=== PATIENT | male | born 1945 | race Caucasian/White ===

== ENCOUNTER 2016-04-26 08:57 | Day surgery (SDC) | payer MEDICARE, OTHER ==
[~2016-04-26 08:57] MED LIST: ALBUMIN HUMAN 250 ML IV PRN
[2016-04-26 09:36] LABS: HEMATOCRIT 34.1 % (37.9-51.0); HEMOGLOBIN 11.3 g/dL (13.5-17.0); HGB HCT DIFFERENCE -0.2; MEAN CORPUSCULAR HEMOGLOBIN 33.5 pg (27.0-33.4); MEAN CORPUSCULAR HGB CONC 33.2 g/dL (32.0-36.0); MEAN CORPUSCULAR VOLUME 101 fl (80-97); RED BLOOD COUNT 3.38 10^6/uL (4.35-5.55); RED CELL DISTRIBUTION WIDTH 14.7 % (11.5-14.0); WHITE BLOOD COUNT 3.6 10^3/uL (4.0-10.5)
[2016-04-26 09:41] LABS: PROTHROMBIN TIME 15.8 SEC (11.4-15.4)
[2016-04-26 09:42] LABS: PARTIAL THROMBOPLASTIN TIME 29.3 SEC (23.5-35.8)
[2016-04-26 09:47] LABS: BLOOD UREA NITROGEN 37 mg/dL (7-20); CREATININE RESULT 2.49 mg/dL (0.52-1.25)
[2016-04-26 12:37] VITALS: BP 119/71
[2016-04-26 12:54] LABS: FLUID APPEARANCE SLIGHTLY HAZY; FLUID TYPE PERITONEAL
[2016-04-26 12:55] LABS: FLUID RBC DILUENT USED NONE USED; FLUID RBC DILUTION FACTOR 1; FLUID RBC SIDE 1 78; FLUID RBC SIDE 2 76; TOTAL RBC SQUARES COUNTED FLD 225
== END 2016-04-26 12:55 | disposition home or self-care (01) ==
LOC: RAD 08:57
PROVIDERS: ATTEND Internal Medicine Gastroenterology
PROC: 0W9F3ZZ Drainage of Abdominal Wall, Percutaneous Approach (ICD-10-PCS; principal; 2016-04-26)
DX: R18.8 Other ascites (principal); K74.69 Other cirrhosis of liver; K83.8 Other specified diseases of biliary tract; R94.5 Abnormal results of liver function studies; I10 Essential (primary) hypertension; Z86.73 Personal history of transient ischemic attack (TIA), and cerebral infarction without residual deficits; Z79.899 Other long term (current) drug therapy; Z79.01 Long term (current) use of anticoagulants
CPT/HCPCS: 36415; 87205; 87070; 84520; 82565; 85027; 85610; 85730; 89050; 87075; 88162; 49083; P9047

== ENCOUNTER 2016-05-29 10:37 | Emergency (ER) | payer MEDICARE, OTHER ==
[2016-05-29] MEDS ORDERED: LIDOCAINE 1%/EPINEPHRINE INJ 20 ML VIAL INJ ONE (11:13)
[2016-05-29] MEDS ORDERED: DIPH/PERTUSS(ACELL)/TETANUS VAC/PF 0.5 ML SYR (>=10YO) IM ONE (11:13)
--- NOTE | 2016-05-29 15:34 | ER Document Report ---
ED Fall - General Chief Complaint: Fall Injury Stated Complaint: HEAD LACERATION Time seen by provider: 12:28 Mode of Arrival: Wheelchair Information source: Patient Notes: This is a 70-year-old man with a history of cirrhosis who is brought into the emergency room after a fall at home. The patient does smoke and usually sits out in his chair smoking and requires assistance with ambulation and transfers. The patient's fitted temporarily went in the house and the patient tried to get out of his chair and fell and hit his head. The was there almost instantaneously and denies any loss of consciousness. The patient complains of a head laceration, some left hand skin tears and some left chest wall pain. TRAVEL OUTSIDE OF THE [place] IN LAST 30 DAYS: No - HPI Occurred: Just prior to arrival Where: Home Context: Lost balance Associated symptoms: Dazed/confused. denies: Lost consciousness Location of injury/pain: Chest, Head, Upper extremity Quality of pain: Dull Severity: Mild Pain Level: 1 Prehospital interventions: No: C-collar, Backboard, HAILY, IV, IO, BVM, Mohinder airway, Nasal airway, Oral airway, Intubation, Needle decompression, Splints, Wound care, Analgesia, Cardiac medications, CPR, Defibrillation, Other - Related data Allergies/Adverse Reactions: No Known Allergies Allergy (Verified 04/26/16 09:35) Past Medical History - General Information source: Patient - Social History Smoking Status: Current Every Day Smoker Cigarette use (# per day): Yes - few cigarettes a day Chew tobacco use (# tins/day): No Frequency of alcohol use: None Drug Abuse: None Lives with: Family Family History: None Patient has suicidal ideation: No Patient has homicidal ideation: No - Past Medical History Cardiac Medical History: Reports: Hx Hypertension - 1995 Denies: Hx Coronary Artery Disease, Hx Heart Attack Pulmonary Medical History: Denies: Hx Asthma, Hx Bronchitis, Hx COPD, Hx Pneumonia Neurological Medical History: Reports: Hx Cerebrovascular Accident - 1994,1995. Denies: Hx Seizures Renal/ Medical History: Reports: Other Malignancy Medical History: Reports Other - Right renal insufficiency GI Medical History: Reports: Hx Cirrhosis Musculoskeltal Medical History: Reports Hx Arthritis - NECK, BACK, HANDS, KNEES Skin Medical History: Reports None Psychiatric Medical History: Reports: None Traumatic Medical History: Reports: None Infectious Medical History: Reports: None Surgical Hx: Other - Immunizations Hx Diphtheria, Pertussis, Tetanus Vaccination: No Review of Systems - Review of Systems Constitutional: denies: Chills, Fever EENT: No symptoms reported Cardiovascular: No symptoms reported Respiratory: No symptoms reported Gastrointestinal: No symptoms reported Genitourinary: No symptoms reported Male Genitourinary: No symptoms reported Musculoskeletal: See HPI Skin: See HPI Hematologic/Lymphatic: No symptoms reported Neurological/Psychological: See HPI Physical Exam - Vital signs Vitals: Temp Pulse Resp BP Pulse Ox 97.9 F 94 20 131/74 H 97 05/29/16 10:42 05/29/16 10:42 05/29/16 10:42 05/29/16 10:42 05/29/16 10:42 Notes: Physical exam: GENERAL: 70-year-old man, alert and oriented 3, no acute distress. HEAD: Normocephalic. Patient does have a 3 cm laceration down to the bone and the left frontal skull. There is no obvious step-off fractures. EYES: Pupils equal round and reactive to light, extraocular movements intact, sclera anicteric, conjunctiva are normal. ENT: TMs normal, nares patent, oropharynx clear without exudates. Moist mucous membranes. NECK: Normal range of motion, supple without lymphadenopathy or JVD. LUNGS: Breath sounds clear to auscultation bilaterally and equal. No wheezes rales or rhonchi. Chest wall: Patient does have left chest wall pain. There is no crepitus, flail segment HEART: Regular rate and rhythm without murmurs, rubs or gallops. ABDOMEN: Soft, distended (which is baseline for the patient, consistent with cirrhosis), there is no abdominal tenderness. EXTREMITIES: Normal range of motion, no pitting or edema. No clubbing or cyanosis. She does have skin tears to the dorsal aspect of the right hand. NEUROLOGICAL: Cranial nerves II through XII grossly intact. Normal speech, normal gait. PSYCH: Normal mood, normal affect. SKIN: Warm, Dry, normal turgor, no rashes or lesions noted. Course - Re-evaluation Re-evalutation: 05/29/16 20:02 Note: I've had a long discussion with the patient and the family. Head CT and cervical spine CT shows no acute injury. I did repair the laceration with sutures. Patient's upper extremity skin tears were cleaned and dressed. Patient did complain of left chest wall pain and I obtained a CT of the chest ( without contrast) to assess chest wall and lungs. Chest wall and lungs looked good, but liver showed some lesions which are concerning for primary cancer. I did discuss this very issue with the patient as well as family. I reviewed an MRI of the abdomen from this past November and it did not mention anything regarding cancer. I recommended they follow-up with their doctor Dr. José Miguel Shepherd as well as a GI doctor Dr. Louise. I gave them copies of the reports from the CTs today as well as the MRI from November 2015. I've asked them to bring those reports to the doctor's office. - Vital Signs Vital signs: Temp Pulse Resp BP Pulse Ox 97.7 F 80 18 143/99 H 100 05/29/16 15:55 05/29/16 15:55 05/29/16 15:55 05/29/16 15:55 05/29/16 15:55 - Diagnostic Test Radiology reviewed: Image reviewed, Reports reviewed - CT of the head and cervical spine show no acute fractures or abnormalities. CT of the chest shows no lung injury. There is no hepatic masses. Procedures - Laceration/Wound Repair Left Face Time completed: 12:00 Wound length (cm): 3 Wound's Depth, Shape: Irregular, Other Laceration pre-procedure: Betadine prep applied - Down to bone, Chloraprep applied Anesthetic type: 1% Lidocaine w/epi Volume Anesthetic (mLs): 5 Wound explored: Foreign body removed Irrigated w/ Saline (mLs): 500 Wound Debrided: Moderate Wound Repaired With: Sutures Suture Size/Type: Nylon Number of Sutures: 7 Layer Closure?: No Deep Layer Suture Size/Type: 5:0 Post-procedure wound care: Sterile dressing applied Post-procedure NV exam normal: Yes Complications: No Discharge - Discharge Clinical Impression: face laceration, closed head injury, left chest wall contusion Condition: Stable Disposition: HOME, SELF-CARE Instructions: Facial Laceration ([facility]) Additional Instructions: Recommendations: Rest, drink plenty of fluids. Take tramadol for pain as prescribed. As we discussed, the CT of the chest did show some new lesions within the liver. I would like you to follow-up with Dr. Louise of GI or Dr. L Joao and bring a copy of today's CT reports with you when you go. Return to the emergency room in one week for suture removal. Apply bacitracin over the laceration daily: You can keep the laceration covered for 2 days, and then begin the bacitracin. See the laceration instructions. As far as the chest wall contusion: Return to the emergency room for any shortness of breath or worsening pain. Prescriptions: Bacitracin Zinc [Bacitracin Oint 15 gm] 1 applic TP DAILY #1 tube Forms: Follow up (Sutures/Keyla) Referrals: CHRISTINA TOVAR MD [EMERITUS] - Follow up in 1 week LEONA LOUISE MD [ACTIVE STAFF] - Follow up in 1 week
[2016-05-29 15:56] VITALS: BP 143/99
== END 2016-05-29 15:56 | disposition home or self-care (01) ==
LOC: ER 10:37
PROC: 0HQ1XZZ Repair Face Skin, External Approach (ICD-10-PCS; principal; 2016-05-29)
DX: S09.90XA Unspecified injury of head, initial encounter (principal); S01.81XA Laceration without foreign body of other part of head, initial encounter; S20.212A Contusion of left front wall of thorax, initial encounter; F17.210 Nicotine dependence, cigarettes, uncomplicated; W07.XXXA Fall from chair, initial encounter; Y92.008 Other place in unspecified non-institutional (private) residence as the place of occurrence of the external cause; Z23 Encounter for immunization; K74.60 Unspecified cirrhosis of liver; I10 Essential (primary) hypertension; Z86.73 Personal history of transient ischemic attack (TIA), and cerebral infarction without residual deficits
CPT/HCPCS: 99283; 90471; 70450; 71250; 72125; 90715; 12052; J3490

== ENCOUNTER 2016-06-06 09:03 | Emergency (ER) | payer MEDICARE, OTHER ==
--- NOTE | 2016-06-06 09:30 | ER Document Report ---
ED Suture/Wound Recheck - General Mode of Arrival: Wheelchair Information source: Patient TRAVEL OUTSIDE OF THE [place] IN LAST 30 DAYS: No - HPI Patient complains to provider of: suture removal Treated in ED (days ago): 8 Previous ED treatment: Laceration repair Context: Injury - Fall Symptoms since procedure: No complaints - General Chief Complaint: Suture Removal Stated Complaint: REMOVE STITCHES Notes: Patient is a 70-year-old male presenting to the emergency department for suture removal. Patient was seen here 05/29/2016 after he fell causing a forehead laceration when trying to stand up. Patient's denies loss of consciousness. Patient was given 7 stitches. Patient denies any falls since that visit. (IRASEMA MCGHEE) - Related Data Allergies/Adverse Reactions: No Known Allergies Allergy (Verified 04/26/16 09:35) Past Medical History - General Information source: Patient - Social History Smoking Status: Current Every Day Smoker Cigarette use (# per day): Yes Lives with: Spouse/Significant other Family History: None, Reviewed & Not Pertinent - Past Medical History Cardiac Medical History: Reports: Hx Hypertension - 1995 Denies: Hx Coronary Artery Disease, Hx Heart Attack Pulmonary Medical History: Denies: Hx Asthma, Hx Bronchitis, Hx COPD, Hx Pneumonia Neurological Medical History: Reports: Hx Cerebrovascular Accident - 1994,1995. Denies: Hx Seizures GI Medical History: Reports: Hx Cirrhosis Musculoskeltal Medical History: Reports Hx Arthritis - NECK, BACK, HANDS, KNEES - Immunizations Hx Diphtheria, Pertussis, Tetanus Vaccination: No Review of Systems - Review of Systems Constitutional: No symptoms reported EENT: No symptoms reported Cardiovascular: No symptoms reported Respiratory: No symptoms reported Gastrointestinal: No symptoms reported Genitourinary: No symptoms reported Male Genitourinary: No symptoms reported Musculoskeletal: No symptoms reported Skin: No symptoms reported Hematologic/Lymphatic: No symptoms reported Neurological/Psychological: No symptoms reported Physical Exam - General General appearance: Appears well, Alert In distress: None - HEENT Head: Normocephalic, Other - Well healed wound over left temporal forehead. Eyes: Normal Pupils: PERRL - Respiratory Respiratory status: No respiratory distress - Cardiovascular Rhythm: Regular - Abdominal Inspection: Normal - Back Back: Normal - Extremities General upper extremity: Normal inspection General lower extremity: Normal inspection - Neurological Neuro grossly intact: Yes Cognition: Normal Rianna Coma Scale Eye Opening: Spontaneous Rianna Coma Scale Verbal: Oriented [place] Coma Scale Motor: Obeys Commands Rianna Coma Scale Total: 15 - Psychological Associated symptoms: Normal affect, Normal mood - Skin Skin Temperature: Warm Skin Moisture: Dry Skin Color: Normal Discharge - Discharge Clinical Impression: Visit for suture removal Disposition: HOME, SELF-CARE Additional Instructions: RETURN TO THE EMERGENCY ROOM IF ANY NEW OR WORSENING SYMPTOMS. Scribe Attestation: 06/06/16 09:32 I personally performed the services described in the documentation, reviewed and edited the documentation which was dictated to the scribe in my presence, and it accurately records my words and actions. (ARPITA CORBETT) Scribe Documentation - Scribe Written by Nando:: Irasema Mcghee 06/06/2016 0913 acting as scribe for :: Farrah
[2016-06-06 09:56] VITALS: BP 120/64
== END 2016-06-06 09:37 | disposition home or self-care (01) ==
LOC: ER 09:03
DX: Z48.02 Encounter for removal of sutures (principal)
CPT/HCPCS: 87086; 87088; 87186

== ENCOUNTER 2016-06-10 07:30 | Day surgery (SDC) | payer MEDICARE, OTHER ==
[2016-06-10 08:29] LABS: ABSOLUTE EOSINOPHILS # (AUTO) 0.1 10^3/uL (0.0-0.6); ABSOLUTE LYMPHOCYTES (AUTO) 0.8 10^3/uL (0.5-4.7); ABSOLUTE MONOCYTES (AUTO) 0.3 10^3/uL (0.1-1.4); ABSOLUTE NEUT (AUTO) 2.2 10^3/uL (1.7-8.2); BASOPHILS % (AUTO) 1.2 % (0-2); EOSINOPHILS % (AUTO) 2.7 % (0-6); HEMATOCRIT 29.9 % (37.9-51.0); HGB HCT DIFFERENCE 0.1; LYMPHOCYTES % (AUTO) 23.2 % (13-45); MEAN CORPUSCULAR HEMOGLOBIN 34.1 pg (27.0-33.4); MEAN CORPUSCULAR HGB CONC 33.5 g/dL (32.0-36.0); MEAN CORPUSCULAR VOLUME 102 fl (80-97); RED BLOOD COUNT 2.93 10^6/uL (4.35-5.55); RED CELL DISTRIBUTION WIDTH 14.7 % (11.5-14.0); SEGMENTED NEUTROPHILS % (AUTO) 64.9 % (42-78); WHITE BLOOD COUNT 3.4 10^3/uL (4.0-10.5)
[2016-06-10 08:34] LABS: PROTHROMBIN TIME 15.4 SEC (11.4-15.4)
[2016-06-10 08:35] LABS: PARTIAL THROMBOPLASTIN TIME 31.4 SEC (23.5-35.8)
[2016-06-10 08:41] LABS: BLOOD UREA NITROGEN 42 mg/dL (7-20); CREATININE RESULT 2.99 mg/dL (0.52-1.25)
[2016-06-10 12:26] VITALS: BP 117/65
== END 2016-06-10 12:15 | disposition home or self-care (01) ==
LOC: RAD 07:30
PROVIDERS: ATTEND Internal Medicine Gastroenterology
PROC: 0W9G3ZZ Drainage of Peritoneal Cavity, Percutaneous Approach (ICD-10-PCS; principal; 2016-06-10)
DX: R18.8 Other ascites (principal); K74.69 Other cirrhosis of liver; R94.5 Abnormal results of liver function studies; D69.6 Thrombocytopenia, unspecified; K83.8 Other specified diseases of biliary tract; R11.2 Nausea with vomiting, unspecified; K21.9 Gastro-esophageal reflux disease without esophagitis; Z86.73 Personal history of transient ischemic attack (TIA), and cerebral infarction without residual deficits; I10 Essential (primary) hypertension; G31.9 Degenerative disease of nervous system, unspecified; F03.90 Unspecified dementia, unspecified severity, without behavioral disturbance, psychotic disturbance, mood disturbance, and anxiety; F17.210 Nicotine dependence, cigarettes, uncomplicated; Z79.899 Other long term (current) drug therapy; Z79.891 Long term (current) use of opiate analgesic
CPT/HCPCS: 36415; 84520; 82565; 85025; 85610; 85730; 49083; P9047

== ENCOUNTER 2016-06-27 07:35 | Day surgery (SDC) | payer MEDICARE, OTHER ==
[2016-06-27 08:35] LABS: ABSOLUTE EOSINOPHILS # (AUTO) 0.2 10^3/uL (0.0-0.6); ABSOLUTE LYMPHOCYTES (AUTO) 0.9 10^3/uL (0.5-4.7); ABSOLUTE MONOCYTES (AUTO) 0.3 10^3/uL (0.1-1.4); ABSOLUTE NEUT (AUTO) 1.9 10^3/uL (1.7-8.2); EOSINOPHILS % (AUTO) 4.9 % (0-6); HEMATOCRIT 30.6 % (37.9-51.0); HEMOGLOBIN 10.1 g/dL (13.5-17.0); HGB HCT DIFFERENCE -0.3; LYMPHOCYTES % (AUTO) 28.1 % (13-45); MEAN CORPUSCULAR HEMOGLOBIN 34.1 pg (27.0-33.4); MEAN CORPUSCULAR HGB CONC 33.1 g/dL (32.0-36.0); MEAN CORPUSCULAR VOLUME 103 fl (80-97); MONOCYTES % (AUTO) 8.4 % (3-13); RED BLOOD COUNT 2.97 10^6/uL (4.35-5.55); RED CELL DISTRIBUTION WIDTH 14.4 % (11.5-14.0); SEGMENTED NEUTROPHILS % (AUTO) 57.6 % (42-78); WHITE BLOOD COUNT 3.3 10^3/uL (4.0-10.5)
[2016-06-27 08:40] LABS: PARTIAL THROMBOPLASTIN TIME 33.4 SEC (23.5-35.8); PROTHROMBIN TIME 15.1 SEC (11.4-15.4)
[2016-06-27 08:48] LABS: BLOOD UREA NITROGEN 40 mg/dL (7-20); CREATININE RESULT 3.16 mg/dL (0.52-1.25)
[2016-06-27 12:48] VITALS: BP 121/72
== END 2016-06-27 13:00 | disposition home or self-care (01) ==
LOC: RAD 07:35
PROVIDERS: ATTEND Internal Medicine Gastroenterology
PROC: 0W9F3ZZ Drainage of Abdominal Wall, Percutaneous Approach (ICD-10-PCS; principal; 2016-06-27)
DX: R18.8 Other ascites (principal); K74.69 Other cirrhosis of liver; K83.8 Other specified diseases of biliary tract; K21.9 Gastro-esophageal reflux disease without esophagitis; I10 Essential (primary) hypertension; R63.0 Anorexia; N19 Unspecified kidney failure; F43.21 Adjustment disorder with depressed mood; F32.9 Major depressive disorder, single episode, unspecified; G47.30 Sleep apnea, unspecified; Z79.01 Long term (current) use of anticoagulants; Z79.899 Other long term (current) drug therapy; Z79.891 Long term (current) use of opiate analgesic; Z86.73 Personal history of transient ischemic attack (TIA), and cerebral infarction without residual deficits
CPT/HCPCS: 36415; 84520; 82565; 85025; 85610; 85730; 88162; 49083; P9047

== ENCOUNTER 2016-07-27 20:09 | Inpatient (IN) | payer MEDICARE, OTHER ==
[2016-07-27] MEDS ORDERED: ONDANSETRON 4 MG TAB.RAPDIS PO ONE (20:58)
[2016-07-27] MEDS ORDERED: TRAMADOL HCL 50 MG TABLET PO ONE (20:58)
--- NOTE | 2016-07-27 21:01 | ER Document Report ---
ED Medical Screen (RME) - General Chief Complaint: Abdominal Pain Stated Complaint: STOMACH PAIN,DIFFICULTY BREATHING Notes: The patient is a 71-year-old male, past medical history chronic liver and kidney disease (follows with Dr. Brock), presents with increasing abdominal pain , fevers up to 100.1, urinary incontinence over the past 2 days and mild shortness of breath. He is scheduled for paracentesis tomorrow. He is also having nausea, which resolves with his home Zofran. He denies chest pain, leg pain, headache, hematemesis, dysuria or headache. I have greeted and performed a rapid initial assessment of this patient. A comprehensive ED assessment and evaluation of the patient, analysis of test results and completion of the medical decision making process will be conducted by additional ED providers. TRAVEL OUTSIDE OF THE [place] IN LAST 30 DAYS: No - Related Data Allergies/Adverse Reactions: No Known Allergies Allergy (Verified 07/27/16 20:38) Past Medical History - General Information source: Patient, Relative - Past Medical History Cardiac Medical History: Reports: Hx Hypertension - 1995 Denies: Hx Coronary Artery Disease, Hx Heart Attack Pulmonary Medical History: Denies: Hx Asthma, Hx Bronchitis, Hx COPD, Hx Pneumonia Neurological Medical History: Reports: Hx Cerebrovascular Accident - 1994,1995. Denies: Hx Seizures Renal/ Medical History: Denies: Hx Peritoneal Dialysis GI Medical History: Reports: Hx Cirrhosis Musculoskeltal Medical History: Reports Hx Arthritis - NECK, BACK, HANDS, KNEES - Immunizations Hx Diphtheria, Pertussis, Tetanus Vaccination: No Physical Exam - Vital signs Vitals: Temp Pulse Resp BP Pulse Ox 98.7 F 125 H 20 111/76 98 07/27/16 20:38 07/27/16 20:38 07/27/16 20:38 07/27/16 20:38 07/27/16 20:38 Course - Vital Signs Vital signs: Temp Pulse Resp BP Pulse Ox 98.7 F 125 H 20 111/76 98 07/27/16 20:38 07/27/16 20:38 07/27/16 20:38 07/27/16 20:38 07/27/16 20:38
[2016-07-27 22:18] LABS: ABSOLUTE LYMPHOCYTES (AUTO) 0.7 10^3/uL (0.5-4.7); ABSOLUTE MONOCYTES (AUTO) 0.4 10^3/uL (0.1-1.4); ABSOLUTE NEUT (AUTO) 3.6 10^3/uL (1.7-8.2); BASOPHILS % (AUTO) 0.8 % (0-2); EOSINOPHILS % (AUTO) 0.8 % (0-6); HEMATOCRIT 32.1 % (37.9-51.0); HEMOGLOBIN 10.7 g/dL (13.5-17.0); LYMPHOCYTES % (AUTO) 15.1 % (13-45); MEAN CORPUSCULAR HEMOGLOBIN 33.8 pg (27.0-33.4); MEAN CORPUSCULAR HGB CONC 33.3 g/dL (32.0-36.0); MEAN CORPUSCULAR VOLUME 102 fl (80-97); MONOCYTES % (AUTO) 8.8 % (3-13); RED BLOOD COUNT 3.15 10^6/uL (4.35-5.55); RED CELL DISTRIBUTION WIDTH 14.3 % (11.5-14.0); SEGMENTED NEUTROPHILS % (AUTO) 74.5 % (42-78); WHITE BLOOD COUNT 4.8 10^3/uL (4.0-10.5)
[2016-07-27] MEDS ORDERED: VANCOMYCIN HCL INJ 1000 MG VIAL IV ONE (22:25)
[2016-07-27] MEDS ORDERED: NORMAL SALINE 1000 ML 500 ML IV ONE (22:25)
[2016-07-27] MEDS ORDERED: CEFEPIME 2 GM/D5W RTU 50 ML IV ONE (22:25)
--- NOTE | 2016-07-27 22:25 | ER Document Report ---
ED General - General Chief Complaint: Abdominal Pain Stated Complaint: STOMACH PAIN,DIFFICULTY BREATHING Cannot obtain history due to: Altered mental status Notes: Patient is a 71-year-old male with past mental history of hepatorenal syndrome with progressively worsening renal failure in the last several months who presents with increased confusion and fever at home up to 101.1. Patient himself is altered and unable to provide meaningful history. His the bedside states that over the past 3 days he has had progressive confusion as well as multiple fevers. He is scheduled for a therapeutic paracentesis tomorrow and his last one was sometime in June. Patient does complain of some diffuse abdominal pain that is constant, worsening, and described as a cramping pain. He has no prior history of spontaneous bacterial peritonitis. Nothing improves or worsens his symptoms. TRAVEL OUTSIDE OF THE [place] IN LAST 30 DAYS: No - Related Data Allergies/Adverse Reactions: No Known Allergies Allergy (Verified 07/27/16 20:38) Past Medical History - General Information source: Patient, Relative - Social History Smoking Status: Never Smoker Frequency of alcohol use: None Drug Abuse: None Lives with: Spouse/Significant other Family History: Reviewed & Not Pertinent Patient has suicidal ideation: No Patient has homicidal ideation: No - Past Medical History Cardiac Medical History: Reports: Hx Hypertension - 1995 Denies: Hx Coronary Artery Disease, Hx Heart Attack Pulmonary Medical History: Denies: Hx Asthma, Hx Bronchitis, Hx COPD, Hx Pneumonia Neurological Medical History: Reports: Hx Cerebrovascular Accident - 1994,1995. Denies: Hx Seizures Renal/ Medical History: Denies: Hx Peritoneal Dialysis GI Medical History: Reports: Hx Cirrhosis Musculoskeltal Medical History: Reports Hx Arthritis - NECK, BACK, HANDS, KNEES - Immunizations Hx Diphtheria, Pertussis, Tetanus Vaccination: No Review of Systems - Review of Systems Notes: Constitutional: Positive for fever. HENT: Negative for sore throat. Eyes: Negative for visual changes. Cardiovascular: Negative for chest pain. Respiratory: Negative for shortness of breath. Gastrointestinal: Positive for abdominal pain Genitourinary: Negative for dysuria. Musculoskeletal: Negative for back pain. Skin: Negative for rash. Neurological: Negative for headaches, weakness or numbness. 10 point ROS negative except as marked above and in HPI. Physical Exam - Vital signs Vitals: Temp Pulse Resp BP Pulse Ox 98.7 F 125 H 20 111/76 98 07/27/16 20:38 07/27/16 20:38 07/27/16 20:38 07/27/16 20:38 07/27/16 20:38 Interpretation: Tachycardic Notes: PHYSICAL EXAMINATION: GENERAL: Frail, acutely ill in appearance HEAD: Atraumatic, normocephalic. EYES: Pupils equal round and reactive to light, extraocular movements intact, mild scleral icterus, conjunctiva are normal. ENT: nares patent, oropharynx clear without exudates. Dry mucous membranes. NECK: Normal range of motion, supple without lymphadenopathy LUNGS: Breath sounds clear to auscultation bilaterally and equal. No wheezes rales or rhonchi. HEART: Regular tachycardia without murmurs ABDOMEN: Tense, distended abdomen. Positive fluid wave. Diffuse tenderness without rebound or guarding EXTREMITIES: Normal range of motion, 2+ pitting edema that is equal and symmetric in the bilateral lower extremities; no cyanosis. NEUROLOGICAL: No focal neurological deficits. Moves all extremities spontaneously and on command. PSYCH: Lethargic, somewhat confused SKIN: Warm, Dry, normal turgor, diffuse bruising Course - Re-evaluation Re-evalutation: 07/27/16 22:24 Patient presents with tachycardia, diffuse abdominal pain, and altered mental status concerning for possible spontaneous bacterial peritonitis. He has also had a cough. At time of arrival vitals are within normal limits with exception of tachycardia. Immediate process in the patient, cultures and labs were ordered. A bedside paracentesis was performed and will be sent for analysis. Patient is critically ill at this time given his hepatorenal syndrome and apparent sepsis. He will require frequent reassessments 07/28/16 00:08 Labs have returned the only probable source at this time appears to be patient' s urinalysis which is consistent with acute pyelonephritis. He has had some mild hypotension with systolics as low as 99. An additional 500 mL fluid bolus will be given at this time. Broad-spectrum in about his including cefepime and vancomycin have been administered. He will be admitted to the hospitalist service. 07/28/16 01:32 Patient continues to mild tachycardia, hypotension has resolved. Laboratories demonstrate a rapidly progressive renal failure. I discussed the results of patient's labs and imaging with his at the bedside and explained the grave nature of his condition and that he may be an appropriate hospice candidate. I have discussed with Dr. Abraham who is requested a renal ultrasound prior to accepting admission. 07/28/16 02:48 Renal ultrasound has returned and does not demonstrate obstruction as the etiology of patient's presentation. The patient has agreed to inpatient hospice management. - Vital Signs Vital signs: Temp Pulse Resp BP Pulse Ox 98.7 F 125 H 11 L 99/65 L 95 07/27/16 20:38 07/27/16 20:38 07/28/16 01:01 07/28/16 01:01 07/28/16 01:01 - Laboratory Result Diagrams: 07/27/16 22:00 07/27/16 22:00 Laboratory results interpreted by me: 07/27/16 07/27/16 07/27/16 22:00 22:00 22:00 RBC 3.15 L Hgb 10.7 L Hct 32.1 L MCV 102 H MCH 33.8 H RDW 14.3 H Plt Count 93 L BUN 55 H Creatinine 4.16 H Est GFR ( Amer) 17 L Est GFR (Non-Af Amer) 14 L Calcium 11.3 H NT-Pro-B Natriuret Pep 3180 H Albumin 2.9 L Urine Protein Urine Blood Ur Leukocyte Esterase 07/27/16 22:00 RBC Hgb Hct MCV MCH RDW Plt Count BUN Creatinine Est GFR ( Amer) Est GFR (Non-Af Amer) Calcium NT-Pro-B Natriuret Pep Albumin Urine Protein 100 H Urine Blood LARGE H Ur Leukocyte Esterase SMALL H - Diagnostic Test Radiology reviewed: Reports reviewed Procedures - Paracentesis RLQ Time completed: 22:15 Consent obtained: No - verbal Paracentesis pre-procedure: Chloraprep applied Needle size: 22 Paracentesis location: RLQ Amount/type of drainage: 5ml bloody, periotoneal fluids Number of attempts: 1 Ultrasound guided: Yes Complications: No Critical Care Note - Critical Care Note Total time excluding time spent on procedures (mins): 37 Comments: Critical care time spent obtaining history from patient or surrogate, discussions with consultants, development of treatment plan with patient or surrogate, evaluation of patient's response to treatment, examination of patient , ordering and performing treatments and interventions, ordering and review of laboratory studies, re-evaluation of patient's condition, ordering and review of radiographic studies and review of old charts Discharge - Discharge Clinical Impression: Hepatorenal syndrome, Pyelonephritis Sepsis Qualifiers: Sepsis type: sepsis due to unspecified organism Qualified Code(s): A41.9 - Sepsis, unspecified organism Condition: Critical Disposition: ADMITTED INPATIENT Admitting Provider: [facility] Unit Admitted: Medical Floor
[2016-07-27 22:29] LABS: AMORPHOUS SEDIMENT,URINE TRACE /HPF; APPEARANCE,URINE CLOUDY; BILIRUBIN,URINE NEGATIVE (NEGATIVE); GLUCOSE, URINE NEGATIVE (NEGATIVE); KETONES,URINE NEGATIVE (NEGATIVE); LEUKOCYTE ESTERASE,URINE SMALL (NEGATIVE); NITRITE,URINE NEGATIVE (NEGATIVE); PROTEIN,URINE 100 mg/dL (NEGATIVE); URINE SPECIFIC GRAVITY 1.013; UROBILINOGEN,URINE NEGATIVE mg/dL (<2.0)
[2016-07-27 22:36] LABS: ALANINE AMINOTRANSFERASE 26 U/L (21-72); ALBUMIN 2.9 g/dL (3.5-5.0); ALKALINE PHOSPHATASE 120 U/L (38-126); ANION GAP 12 (5-19); ASPARTATE AMINO TRANSFERASE 25 U/L (17-59); BILIRUBIN,DIRECT 0.3 mg/dL (0.0-0.4); BLOOD UREA NITROGEN 55 mg/dL (7-20); CALCIUM 11.3 mg/dL (8.4-10.2); CARBON DIOXIDE 23 mmol/L (22-30); CHLORIDE 106 mmol/L (98-107); CREATININE RESULT 4.16 mg/dL (0.52-1.25); GLUCOSE 104 mg/dL (75-110); LIPASE 138.1 U/L (23-300); POTASSIUM 4.8 mmol/L (3.6-5.0); SODIUM 140.7 mmol/L (137-145); TOTAL PROTEIN 7.6 g/dL (6.3-8.2)
[2016-07-27] MEDS ORDERED: MORPHINE SULFATE 10 MG/ML INJ IV PRN (22:36)
[2016-07-27] MEDS ORDERED: ONDANSETRON HCL INJ/PF 4 MG/2 ML SDV IV ONE (22:36)
[2016-07-27 23:11] LABS: FLUID APPEARANCE CLOUDY; FLUID TYPE PERITONEAL
[2016-07-27 23:12] LABS: FLUID RBC AVERAGE 218.5; FLUID RBC DILUENT USED NONE USED; FLUID RBC SIDE 1 212; FLUID RBC SIDE 2 225
[2016-07-27 23:13] LABS: FLUID RBC DILUTION FACTOR 1; TOTAL RBC SQUARES COUNTED FLD 25
[2016-07-28] MEDS ORDERED: NORMAL SALINE 1000 ML 500 ML IV ONE (00:07)
[2016-07-28] MEDS ORDERED: LORAZEPAM INJ 2 MG/1 ML VIAL IV PRN (02:59)
[2016-07-28] MEDS ORDERED: IPRATROPIUM/ALBUTEROL 0.5-2.5 MG/3 ML AMPUL NEB PRN (03:00)
[2016-07-28] MEDS ORDERED: ACETAMINOPHEN 650 MG SUPP.RECT PR PRN (03:00)
[2016-07-28] MEDS ORDERED: ONDANSETRON HCL INJ/PF 4 MG/2 ML SDV IV PRN (03:00)
--- NOTE | 2016-07-28 03:19 | PDOC H&P ---
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 Presenting with altered mental status increased abdominal distention nontender abdomen paracentesis performed by emergency room provider is unremarkable for peritonitis urinalysis is suggestive of urinary tract infection, ultrasound is negative for hydronephrosis or obstruction. Patient is hypotensive despite use of midodrine, his is at bedside verifying his CODE STATUS inquiring of hospice measures. He is started on empiric antibiotics and symptomatically management in anticipation of transition to hospice care following consult requested tomorrow. 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 Watson, [facility] Records Lives with: Spouse/Significant other Smoking Status: Never Smoker Drugs: None - Advance Directive Resuscitation Status: Do Not Resuscitate Family History Family History: Hypertension Parental Family History Reviewed: Yes Children Family History Reviewed: Yes Sibling(s) Family History Reviewed.: Yes Medication/Allergy Home Medications: Allopurinol 150 mg PO DAILY 05/07/13 Clonazepam [Klonopin 2 mg Tablet Rapid Desolve] 1 mg PO BID 05/07/13 Mirtazapine [Remeron 15 mg Tablet] 1 tab PO QHS 05/07/13 Tramadol HCl 50 mg PO DAILY 09/22/15 Diclofenac Sodium [Voltaren] 100 gm TP DAILY 04/26/16 Lactulose 20 gm PO BID 04/26/16 Ursodiol 300 mg PO BID 04/26/16 Bacitracin Zinc [Bacitracin Oint 15 gm] 1 applic TP DAILY #1 tube 05/29/16 Midodrine HCl 10 mg PO TID 06/09/16 Allergies/Adverse Reactions: No Known Allergies Allergy (Verified 07/27/16 20:38) Review of Systems ROS unobtainable: Due to mental status Physical Exam Vital Signs: Temp Pulse Resp BP Pulse Ox 98.7 F 125 H 11 L 99/65 L 95 07/27/16 20:38 07/27/16 20:38 07/28/16 01:01 07/28/16 01:01 07/28/16 01:01 Intake & Output 07/26/16 07/27/16 07/28/16 11:59 11:59 11:59 Weight 92.9 kg General appearance: PRESENT: mild distress, thin, well-developed, well-nourished , other - Severe cachexia and temporal wasting Head exam: PRESENT: atraumatic, normocephalic Eye exam: PRESENT: conjunctiva pink, EOMI, PERRLA. ABSENT: scleral icterus Ear exam: PRESENT: normal external ear exam Mouth exam: PRESENT: moist, tongue midline Neck exam: ABSENT: carotid bruit, JVD, lymphadenopathy, thyromegaly Respiratory exam: PRESENT: crackles, retraction. ABSENT: rales, rhonchi, wheezes Cardiovascular exam: PRESENT: RRR. ABSENT: diastolic murmur, rubs, systolic murmur Pulses: PRESENT: normal dorsalis pedis pul Vascular exam: PRESENT: normal capillary refill GI/Abdominal exam: PRESENT: ascites, distended, firm, hypoactive bowel sounds, rigid. ABSENT: guarding, mass, organolmegaly, rebound, tenderness Rectal exam: PRESENT: deferred Extremities exam: PRESENT: full ROM, +1 edema, +2 edema. ABSENT: calf tenderness, clubbing, pedal edema Neurological exam: PRESENT: altered, other - Obtunded with intermittent eye opening complaining of abdominal pain Psychiatric exam: PRESENT: other - Obtunded with intermittent spontaneous eye opening. ABSENT: homicidal ideation, suicidal ideation Skin exam: PRESENT: dry, intact, warm. ABSENT: cyanosis, rash Results Laboratory Results: 07/27/16 22:00 07/27/16 22:00 07/27/16 07/27/16 07/27/16 22:00 22:00 22:00 WBC 4.8 RBC 3.15 L Hgb 10.7 L Hct 32.1 L MCV 102 H MCH 33.8 H MCHC 33.3 RDW 14.3 H Plt Count 93 L Seg Neutrophils % 74.5 Lymphocytes % 15.1 Monocytes % 8.8 Eosinophils % 0.8 Basophils % 0.8 Absolute Neutrophils 3.6 Absolute Lymphocytes 0.7 Absolute Monocytes 0.4 Absolute Eosinophils 0.0 Absolute Basophils 0.0 Sodium 140.7 Potassium 4.8 Chloride 106 Carbon Dioxide 23 Anion Gap 12 BUN 55 H Creatinine 4.16 H Est GFR ( Amer) 17 L Est GFR (Non-Af Amer) 14 L Glucose 104 Calcium 11.3 H Total Bilirubin 1.0 AST 25 ALT 26 Alkaline Phosphatase 120 Total Protein 7.6 Albumin 2.9 L Lipase 138.1 Urine Color DARK YELLOW Urine Appearance CLOUDY Urine pH 6.0 Ur Specific [place] 1.013 Urine Protein 100 H Urine Glucose (UA) NEGATIVE Urine Ketones NEGATIVE Urine Blood LARGE H Urine Nitrite NEGATIVE Ur Leukocyte Esterase SMALL H Urine WBC (Auto) 74 Urine RBC (Auto) >182 Fluid Type Fluid Source Fluid Color Fluid Appearance Fluid Viscosity Fluid WBC Fluid RBC 07/27/16 22:20 WBC RBC Hgb Hct MCV MCH MCHC RDW Plt Count Seg Neutrophils % Lymphocytes % Monocytes % Eosinophils % Basophils % Absolute Neutrophils Absolute Lymphocytes Absolute Monocytes Absolute Eosinophils Absolute Basophils Sodium Potassium Chloride Carbon Dioxide Anion Gap BUN Creatinine Est GFR ( Amer) Est GFR (Non-Af Amer) Glucose Calcium Total Bilirubin AST ALT Alkaline Phosphatase Total Protein Albumin Lipase Urine Color Urine Appearance Urine pH Ur Specific [place] Urine Protein Urine Glucose (UA) Urine Ketones Urine Blood Urine Nitrite Ur Leukocyte Esterase Urine WBC (Auto) Urine RBC (Auto) Fluid Type PERITONEAL Fluid Source ASCITES Fluid Color PINK Fluid Appearance CLOUDY Fluid Viscosity SLIGHTLY VISCOUS Fluid WBC 62 Fluid RBC 2185 07/27/16 07/27/16 22:00 22:00 Creatine Kinase Cancelled Troponin I Cancelled NT-Pro-B Natriuret Pep 3180 H Impressions: Chest X-Ray 07/27/16 20:52 IMPRESSION: No acute cardiopulmonary findings. Renal Ultrasound 07/28/16 00:25 IMPRESSION: No hydronephrosis is identified to suggest obstruction. There is increased echogenicity in the renal cortex of each kidney suggesting intrinsic renal disease. Atrophic appearing left kidney. Other findings as noted above. Assessment & Plan - Diagnosis (1) Primary sclerosing cholangitis Is this a current diagnosis for this admission?: YesPlan: End-stage pressor dependent with hepatorenal syndrome, hospice requested (2) Hepatorenal syndrome Is this a current diagnosis for this admission?: YesPlan: Secondary to above hospice pending (3) Pyelonephritis Is this a current diagnosis for this admission?: YesPlan: Empiric antibiotics pending hospice consultation follow-up CBC and culture (4) Sepsis Qualifiers: Sepsis type: sepsis due to unspecified organism Qualified Code(s): A41.9 - Sepsis, unspecified organism Is this a current diagnosis for this admission?: YesPlan: Empiric antibiotics follow-up culture and CBC - Time Time Spent: 50 to 70 Minutes - Inpatient Certification Medical Necessity: Significant Comorbidiites Make Outpatient Treatment Too Risky , Need Close Monitoring Due to Risk of Patient Decompensation
[2016-07-28] MEDS: MORPHINE SULFATE 10 MG/ML INJ IV PRN ×6 (03:51→15:21)
--- NOTE | 2016-07-28 08:33 | EKG REPORT ---
SEVERITY:- ABNORMAL ECG - SINUS TACHYCARDIA PROBABLE INFERIOR INFARCT, AGE INDETERMINATE CONSIDER POSTERIOR WALL INVOLVEMENT LATERAL LEADS ARE ALSO INVOLVED : Confirmed by: Donnie Jones MD 28-Jul-2016 08:32:27
--- NOTE | 2016-07-28 08:35 | EKG REPORT ---
SEVERITY:- ABNORMAL ECG - SINUS TACHYCARDIA OLD INFERIOR MD. DIFFUSE NONSPECIFIC ST-T CHANGES. . : Confirmed by: Donnie Jones MD 28-Jul-2016 08:34:45
[2016-07-28] MEDS ORDERED: CEFTRIAXONE 1 GM/D5W RTU 50 ML IV SCH (10:00)
[2016-07-28] MEDS: LORAZEPAM INJ 2 MG/1 ML VIAL IV SCH ×3 (17:37→20:11)
[2016-07-28] MEDS: MORPHINE SULFATE 60 MG/60 ML RTUINJ IV PRN (18:43)
[2016-07-28 20:45] VITALS: BP 98/61
[2016-07-28] MEDS ORDERED: SCOPOLAMINE HYDROBROMIDE 1.5 MG PATCH.TD72 TD ONE (23:00)
[2016-07-29] MEDS ORDERED: SCOPOLAMINE HYDROBROMIDE 1.5 MG PATCH.TD72 ONE (00:25)
[2016-07-29] MEDS: LORAZEPAM INJ 2 MG/1 ML VIAL IV SCH ×2 (00:56→03:47)
[2016-07-29] MEDS: MORPHINE SULFATE 60 MG/60 ML RTUINJ IV PRN (05:55)
--- NOTE | 2016-07-29 16:10 | Death Summary ---
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 Presenting with altered mental status increased abdominal distention nontender abdomen paracentesis performed by emergency room provider is unremarkable for peritonitis urinalysis is suggestive of urinary tract infection, ultrasound is negative for hydronephrosis or obstruction. Patient is hypotensive despite use of midodrine , his is at bedside verifying his CODE STATUS inquiring of hospice measures. He is started on empiric antibiotics and symptomatically management in anticipation of transition to hospice care following consult requested tomorrow. Patient's condition worsened rapidly during his hospitalization He became comatose He was placed on comfort care measures He peacefully with his family at this bedside
== END 2016-07-29 13:02 | disposition left against medical advice (07) | DRG 871 ==
LOC: ER 20:09 → EH 07-28 03:00 → UNDOADMIN 07-28 03:22 → EH 07-28 03:22 → 4S 07-28 08:31
PROVIDERS: ADMIT Internal Medicine; ATTEND Internal Medicine
PROC: 0W9G3ZZ Drainage of Peritoneal Cavity, Percutaneous Approach (ICD-10-PCS; principal; 2016-07-28)
PROC: 3E0F73Z Introduction of Anti-inflammatory into Respiratory Tract, Via Natural or Artificial Opening (ICD-10-PCS; 2016-07-28)
DX: A41.9 Sepsis, unspecified organism (principal); K76.7 Hepatorenal syndrome; N10 Acute pyelonephritis; K83.0 Cholangitis; I10 Essential (primary) hypertension; Z51.5 Encounter for palliative care; K74.60 Unspecified cirrhosis of liver; Z66 Do not resuscitate; M19.90 Unspecified osteoarthritis, unspecified site; N19 Unspecified kidney failure; Z82.49 Family history of ischemic heart disease and other diseases of the circulatory system; Z86.73 Personal history of transient ischemic attack (TIA), and cerebral infarction without residual deficits
CPT/HCPCS: 36415; 71010; 76770; 80048; 80076; 81001; 83690; 83880; 85025; 85610; 87040; 87070; 87075; 87077; 87086; 87186; 87205; 89050; 93005; 93010; 96365; 96375; 99291; J0692; J0696; J2060; J2270; J2405; S0119